=== PATIENT | female | born 1935 | race Caucasian/White ===

== ENCOUNTER 2016-12-20 16:58 | Emergency (ER) | payer MEDICARE, BC ==
[~2016-12-20] VITALS: Ht 162.6 cm; Wt 63.6 kg
[~2016-12-20 16:58] MED LIST: AMITRIPTYLINE H25 M1 PO; CIPRO 500MG TA500 MG PO; CRESTOR 10MG10 MG PO; DOXYCYCLINE 50M50 MG PO; HCTZ 25MG TAB25 MG PO; LORTAB 2.5/5001 TAB PO; MOBIC 7.5MG7.5 MG PO; NO HOME MEDICATIONS; OYSCO 500 + D 51 TAB PO; PEPCID 20MG TAB20 MG PO; RESTASIS0.05% OP; TENORMIN 2525 MG/TAB PO; TRANSDERM-0.5 MG/21 TD; ULTRAM 50MG TAB50 MG PO; ZANAFLEX CAPSULE4 MG PO
[2016-12-20 17:14] VITALS: TEMP 98.4
[2016-12-20] MEDS ORDERED: TYLENOL 500MG500 MG PO (17:23)
[2016-12-20] MEDS ORDERED: OXY IR5 MG PO (17:24)
[2016-12-20] MEDS ORDERED: RESTORIL 77.5 MG/CAP PO (17:24)
[2016-12-20] MEDS ORDERED: OMEGA-3 1000 MG1 CAP PO (17:25)
[2016-12-20 17:40] LABS: BASO # 0.1 (0.0-0.2); BASO % 0.9 % (0.0-2.0); EOS # 0.2 (0.0-0.7); EOS % 4.1 % (0-4.0); GRAN # 2.7 (1.4-6.5); GRAN % 46.2 % (42.2-75.2); HEMATOCRIT 41.8 % (37.0-47.0); HEMOGLOBIN 14.3 g/dl (12.5-16.0); LYMPH # 2.4 (1.2-3.4); LYMPH % 40.7 % (20.0-51.0); MEAN CELL VOLUME 96 fl (80.0-100.0); MEAN CORPUSCULAR HEMOGLOBIN 33 pg (27.0-31.0); MEAN CORPUSCULAR HGB CONC 34 g/dl (33.0-37.0); MEAN PLATELET VOLUME 9.5 fl (7.4-10.4); MONO # 0.5 (0.1-0.6); MONO % 7.9 % (1.7-9.3); PLATELET COUNT 219 K/mm3 (130-400); RED BLOOD COUNT 4.36 M/mm3 (4.10-5.30); REDCELL DISTRIBUTION WIDTH-CV 12.9 % (11.5-14.5); WHITE BLOOD COUNT 5.9 K/mm3 (4.8-10.8)
[2016-12-20 17:45] LABS: ADJUSTED CALCIUM 9.5 mg/dL (8.4-10.2); ALANINE AMINOTRANSFERASE 27 U/L (9-52); ALBUMIN 4.1 gm/dL (3.5-5.0); ALKALINE PHOSPHATASE 59 U/L (50-136); ANION GAP 11 mmol/L (7-16); BILIRUBIN,TOTAL 1.7 mg/dL (0.0-1.0); BLOOD UREA NITROGEN 20 mg/dL (7-17); CALCIUM 9.6 mg/dL (8.4-10.2); CARBON DIOXIDE 31 mmol/L (22-30); CHLORIDE 96 mmol/L (98-107); CREATININE, serum 0.92 mg/dL (0.52-1.25); GLUCOSE 87 mg/dL (74-106); LIPASE 47 U/L (23-300); POTASSIUM 3.9 mmol/L (3.4-5.0); SODIUM 138 mmol/L (137-145); TOTAL PROTEIN 6.6 gm/dL (6.4-8.2)
[2016-12-20 17:57] LABS: TROPONIN-I < 0.012 ng/mL (0.000-0.034)
[2016-12-20] MEDS ORDERED: PEPCID40 MG PO (18:32)
[2016-12-20 18:46] VITALS: BP 110/75; PULSE 60
== END 2016-12-20 18:48 | disposition home or self-care (01) ==
LOC: COL.ER 16:58
PROVIDERS: Emergency Medicine
DX: R07.9 Chest pain, unspecified (principal); I10 Essential (primary) hypertension; E78.5 Hyperlipidemia, unspecified

== ENCOUNTER 2017-04-07 10:45 | Outpatient (RCR) | payer MEDICARE, BC ==
[~2017-04-07 10:45] MED LIST changes: +OMEGA-3 1000 MG1 CAP PO; +OXY IR5 MG PO; +PEPCID40 MG PO; +RESTORIL 77.5 MG/CAP PO; +TYLENOL 500MG500 MG PO
== END 2017-04-15 13:55 | disposition home or self-care (01) ==
LOC: WSPT 10:45
DX: R53.1 Weakness (principal)
CPT/HCPCS: G8978-GP; G8979-GP; G8980-GP

== ENCOUNTER → 2017-06-01 | Outpatient (CLI) | payer MEDICARE, BC | LOC: COL.RAD 08:30 | DX: M25.551 Pain in right hip (principal) | CPT/HCPCS: J3301; Q9967 ==

== ENCOUNTER → 2017-09-15 | Outpatient (CLI) | payer MEDICARE, BC | LOC: MC.RAD 09-14 10:20 | DX: Z12.31 Encounter for screening mammogram for malignant neoplasm of breast (principal) ==

== ENCOUNTER → 2018-03-21 | Outpatient (CLI) | payer MEDICARE, BC | LOC: COL.RAD 13:43 | DX: M25.552 Pain in left hip (principal); M25.551 Pain in right hip | CPT/HCPCS: J3301; Q9967 ==

== ENCOUNTER → 2018-06-06 | Outpatient (CLI) | payer MEDICARE, BC | LOC: COL.RAD 09:00 | DX: K21.9 Gastro-esophageal reflux disease without esophagitis (principal) | CPT/HCPCS: G8996-GN; G8997-GN; G8998-GN ==

== ENCOUNTER 2018-06-16 09:45 | Outpatient (RCR) | payer MEDICARE, BC | END 2018-08-08 | disposition home or self-care (01) | LOC: WSST | DX: K21.9 Gastro-esophageal reflux disease without esophagitis (principal) | CPT/HCPCS: G8996-GN; G8997-GN ==

== ENCOUNTER 2018-08-31 12:45 | Outpatient (RCR) | payer MEDICARE, BC | END 2018-11-07 | disposition home or self-care (01) | LOC: WSST | DX: K21.9 Gastro-esophageal reflux disease without esophagitis (principal) | CPT/HCPCS: G8997-GN; G8998-GN; G9171-GN; G9172-GN ==

== ENCOUNTER → 2018-10-13 | Outpatient (CLI) | payer MEDICARE, BC | LOC: COL.RAD 10:00 | DX: M25.551 Pain in right hip (principal) | CPT/HCPCS: J3301; Q9967 ==

== ENCOUNTER → 2018-10-20 | Outpatient (CLI) | payer MEDICARE, BC | LOC: MC.RAD 14:14 | DX: Z12.31 Encounter for screening mammogram for malignant neoplasm of breast (principal) ==

== ENCOUNTER 2019-02-15 12:35 | Emergency (ER) | payer MEDICARE, BC ==
[~2019-02-15] VITALS: Ht 144.8 cm; Wt 62.7 kg
[2019-02-15 12:45] VITALS: TEMP 97.9
[2019-02-15 13:02] LABS: BASO % 0.4 % (0.0-2.0); EOS # 0.1 (0.0-0.7); EOS % 1.2 % (0-4.0); GRAN # 4.9 (1.4-6.5); HEMATOCRIT 43.7 % (37.0-47.0); HEMOGLOBIN 14.5 g/dl (12.5-16.0); LYMPH # 1.6 (1.2-3.4); LYMPH % 21.7 % (20.0-51.0); MEAN CELL VOLUME 102 fl (80.0-100.0); MEAN CORPUSCULAR HEMOGLOBIN 34 pg (27.0-31.0); MEAN CORPUSCULAR HGB CONC 33 g/dl (33.0-37.0); MEAN PLATELET VOLUME 9.2 fl (7.4-10.4); MONO # 0.7 (0.1-0.6); MONO % 9.4 % (1.7-9.3); PLATELET COUNT 221 K/mm3 (130-400); RED BLOOD COUNT 4.27 M/mm3 (4.10-5.30); REDCELL DISTRIBUTION WIDTH-CV 13.4 % (11.5-14.5)
[2019-02-15 13:05] LABS: INR 1.1 (0.8-3.0); PROTHROMBIN TIME 12.6 SECONDS (9.7-12.8)
[2019-02-15 13:08] LABS: ALANINE AMINOTRANSFERASE 14 U/L (9-52); ALBUMIN 4.1 gm/dL (3.5-5.0); ALKALINE PHOSPHATASE 45 U/L (50-136); ANION GAP 10 mmol/L (7-16); AST,SGOT 25 U/L (15-37); BILIRUBIN,TOTAL 1.9 mg/dL (0.0-1.0); BLOOD UREA NITROGEN 19 mg/dL (7-17); CALCIUM 9.4 mg/dL (8.4-10.2); CARBON DIOXIDE 27 mmol/L (22-30); CHLORIDE 102 mmol/L (98-107); GLUCOSE 107 mg/dL (74-106); POTASSIUM 4.1 mmol/L (3.4-5.0); SODIUM 139 mmol/L (137-145); TOTAL PROTEIN 6.8 gm/dL (6.4-8.2)
[2019-02-15 13:23] LABS: TROPONIN-I < 0.012 ng/mL (0.000-0.035)
[2019-02-15 16:22] VITALS: BP 147/97; PULSE 106
== END 2019-02-15 16:15 | disposition home or self-care (01) ==
LOC: COL.ER 12:35
PROVIDERS: Emergency Medicine
DX: I48.91 Unspecified atrial fibrillation (principal); I10 Essential (primary) hypertension; E78.5 Hyperlipidemia, unspecified; I48.2 Chronic atrial fibrillation; J44.9 Chronic obstructive pulmonary disease, unspecified; Z90.49 Acquired absence of other specified parts of digestive tract
CPT/HCPCS: J7030

== ENCOUNTER 2019-03-14 15:45 | Outpatient (RCR) | payer MEDICARE, BC | END 2019-03-15 | LOC: WSPT | DX: M54.6 Pain in thoracic spine (principal); G89.29 Other chronic pain | CPT/HCPCS: G0283-GP ==

== ENCOUNTER 2019-03-20 14:39 | Outpatient (RCR) | payer MEDICARE, BC | END 2019-03-23 13:22 | disposition home or self-care (01) | LOC: WSPT 14:39 | DX: M54.6 Pain in thoracic spine (principal); G89.29 Other chronic pain ==

== ENCOUNTER → 2019-07-28 | Outpatient (CLI) | payer MEDICARE, BC | LOC: COL.RAD 09:21 | DX: M16.0 Bilateral primary osteoarthritis of hip (principal) | CPT/HCPCS: J3301; Q9967 ==

== ENCOUNTER 2019-09-03 17:18 | Observation (INO) | payer MEDICARE, BC ==
[~2019-09-03] VITALS: Ht 144.8 cm; Wt 64.6 kg
[2019-09-03 17:42] LABS: BASO # 0.1 (0.0-0.2); BASO % 0.7 % (0.0-2.0); EOS # 0.2 (0.0-0.7); EOS % 2.3 % (0-4.0); GRAN # 4.2 (1.4-6.5); LYMPH # 2.3 (1.2-3.4); LYMPH % 29.9 % (20.0-51.0); MEAN CELL VOLUME 101 fl (80.0-100.0); MEAN CORPUSCULAR HEMOGLOBIN 33 pg (27.0-31.0); MEAN CORPUSCULAR HGB CONC 33 g/dl (33.0-37.0); MEAN PLATELET VOLUME 9.5 fl (7.4-10.4); MONO # 0.9 (0.1-0.6); MONO % 11.6 % (1.7-9.3); PLATELET COUNT 287 K/mm3 (130-400); RED BLOOD COUNT 3.65 M/mm3 (4.10-5.30); REDCELL DISTRIBUTION WIDTH-CV 13.9 % (11.5-14.5)
[2019-09-03 17:44] LABS: HEMATOCRIT 36.9 % (37.0-47.0)
[2019-09-03 17:46] LABS: PROTHROMBIN TIME 11.4 SECONDS (9.7-12.8)
[2019-09-03 17:51] LABS: ALANINE AMINOTRANSFERASE 21 U/L (9-52); ALBUMIN 3.9 gm/dL (3.5-5.0); ALKALINE PHOSPHATASE 57 U/L (50-136); ANION GAP 9 mmol/L (7-16); AST,SGOT 30 U/L (15-37); BLOOD UREA NITROGEN 25 mg/dL (7-17); CALCIUM 9.3 mg/dL (8.4-10.2); CARBON DIOXIDE 27 mmol/L (22-30); CHLORIDE 104 mmol/L (98-107); CREATININE, serum 0.86 (0.52-1.25); GLUCOSE 124 mg/dL (74-106); LIPASE 26 U/L (23-300); POTASSIUM 3.9 mmol/L (3.4-5.0); SODIUM 140 mmol/L (137-145); TOTAL PROTEIN 6.6 gm/dL (6.4-8.2)
[2019-09-03 18:07] LABS: TROPONIN-I < 0.012 ng/mL (0.000-0.035)
[2019-09-03] MEDS ORDERED: ASPIRIN 32325 MG/TAB PO (19:39)
[2019-09-03 21:18] VITALS: BP 152/81; PULSE 69; TEMP 98.2
[2019-09-03] MEDS ORDERED: ELIQUIS 5MG PO (22:37)
[2019-09-03 22:38] LABS: MAGNESIUM 2.1 mg/dL (1.6-2.3)
[2019-09-03] MEDS ORDERED: CLEOCIN HCL300 MG PO (22:41)
[2019-09-03 22:53] LABS: TROPONIN-I 3 HR POST INITIAL < 0.012 ng/mL (0.000-0.034)
[2019-09-03 23:18] VITALS: BP 159/84; PULSE 69; TEMP 98.6
[2019-09-04] MEDS ORDERED: CRESTOR 10MG10 MG PO (01:20)
[2019-09-04] MEDS ORDERED: SYNTHROID0.05 MG/TA PO (01:20)
[2019-09-04] MEDS ORDERED: ZEBETA 5MG5 MG PO (01:20)
[2019-09-04] MEDS ORDERED: ULTRAM 50MG TAB50 MG PO (01:21)
[2019-09-04] MEDS ORDERED: REQUIP0.25 MG PO (01:22)
[2019-09-04] MEDS ORDERED: NORCO 325 MG-51 TAB PO (01:23)
[2019-09-04] MEDS ORDERED: SANCTURA20 MG PO (01:26)
[2019-09-04] MEDS ORDERED: TOPROL XL 25MG25 MG PO (01:33)
[2019-09-04 03:38] LABS: BASO # 0.1 (0.0-0.2); BASO % 0.8 % (0.0-2.0); EOS # 0.2 (0.0-0.7); EOS % 2.4 % (0-4.0); GRAN % 64.3 % (42.2-75.2); HEMOGLOBIN 10.7 g/dl (12.5-16.0); LYMPH # 1.7 (1.2-3.4); LYMPH % 21.4 % (20.0-51.0); MEAN CELL VOLUME 101 fl (80.0-100.0); MEAN CORPUSCULAR HEMOGLOBIN 33 pg (27.0-31.0); MEAN CORPUSCULAR HGB CONC 33 g/dl (33.0-37.0); MEAN PLATELET VOLUME 9.6 fl (7.4-10.4); MONO # 0.8 (0.1-0.6); MONO % 10.7 % (1.7-9.3); PLATELET COUNT 224 K/mm3 (130-400); RED BLOOD COUNT 3.22 M/mm3 (4.10-5.30); REDCELL DISTRIBUTION WIDTH-CV 13.9 % (11.5-14.5)
[2019-09-04 03:44] LABS: HEMATOCRIT 32.5 % (37.0-47.0)
[2019-09-04 03:51] LABS: ALANINE AMINOTRANSFERASE 23 U/L (9-52); ALBUMIN 3.3 gm/dL (3.5-5.0); ALKALINE PHOSPHATASE 50 U/L (50-136); ANION GAP 6 mmol/L (7-16); AST,SGOT 21 U/L (15-37); BILIRUBIN,TOTAL 0.9 mg/dL (0.0-1.0); BLOOD UREA NITROGEN 18 mg/dL (7-17); CALCIUM 8.7 mg/dL (8.4-10.2); CARBON DIOXIDE 25 mmol/L (22-30); CHLORIDE 108 mmol/L (98-107); CHOLESTEROL 128 mg/dL (120-200); CHOLESTEROL RISK RATIO 2.6; CREATININE, serum 0.73 (0.52-1.25); GLUCOSE 101 mg/dL (74-106); HDL CHOLESTEROL 48 mg/dL; LDL CHOLESTEROL 58 mg/dL; POTASSIUM 3.5 mmol/L (3.4-5.0); SODIUM 139 mmol/L (137-145); TOTAL PROTEIN 5.7 gm/dL (6.4-8.2); TRIGLYCERIDE 108 mg/dL
[2019-09-04 04:01] VITALS: BP 160/85; PULSE 76; TEMP 98.6
[2019-09-04 04:20] LABS: TROPONIN-I < 0.012 ng/mL (0.000-0.035)
--- NOTE | 2019-09-04 06:31 | NUR ---
Vancomycin Initial Dosing Pharmacy Note Ordering provider: Leslie Parisi MD Indication/duration: cellulitis LABS: est Crcl 35-40 ml/min Recommendation: staring dose at 1 gram IV daily, will follow daily labs, obtain trough prior to the 4th dose on 09/06/2019 at 1730. Loading dose: 1.5 grams Maintenance dose: 1 gram every 24 hours Trough goal: 10-15 ug/mL
[2019-09-04 07:08] VITALS: BP 162/93; PULSE 82; TEMP 98.2
--- NOTE | 2019-09-04 07:38 | NUR ---
ASSESSMENT COMPLETE. ORIENTED TO ROOM AND PROCESS OF ADMISSION. VOICES UNDERSTANDING. DENIES NEEDS AT THIS TIME.
--- NOTE | 2019-09-04 10:07 | NUR ---
Assessment completed, alert/oriented, vital signs stable, denies any acutre chest / abd pain or discomfort, reports chronic arthritis pain/ takes ultram and tylenol scheduled, heart RRR/ dsital pulses are palpable, SR on tele, lungs CTA/ no resp.difficulty noted, she has wound on her left lawson/ Cx were obtained, however she has been on Abx for a couple weeks now per her report, dressing intact and will leave it be untill hospitalist assesses wound and give order for wound cares/dressings, she is NPO at this time for Further workup of abd pain, she denies needs
[2019-09-04 11:45] VITALS: BP 144/84; PULSE 78; TEMP 98
--- NOTE | 2019-09-04 13:35 | NUR ---
SW met with the patient to discuss discharge plan. The patient lives in [place] with her , Max. She reports independence with ADLs and has two canes. The patient's PCP is Dr. Melisa Keys and she receives her medications at [facility]. She reports no difficulties obtaining her meds. The patient does not have advanced directives in EMR, but she states that she does have them completed. She states that her is her DPOA-HC. The patient plans to return home with her upon discharge. No additional needs at this time.
[2019-09-04 15:42] VITALS: BP 154/81; PULSE 69; TEMP 98
--- NOTE | 2019-09-04 20:00 | NUR ---
Patient assessed at this time. Confused and disoriented to place and situation. Reported that patient has not slept for a few days now and has been getting increasingly confused. Denies having pain and discomfort. Peripheral IV to left forearm. Fluids and ABXs running per orders. LS CTA. Respirations even and unlabored. Denies SOB and dyspenean. HRR. Telemetry: NS. Capillary refill less than 3 seconds. Non-tenting skin turgor. BSAx4. Abdomen soft and non-tender. 1+ edema LLE. Mepilex to ulcer to left lawson is CDI. In bed with call light within reach.
[2019-09-04 20:16] VITALS: BP 127/77; PULSE 83; TEMP 98.1
--- NOTE | 2019-09-04 21:15 | NUR ---
Patient assisted to bathroom. Patient is now oriented to person, time, and place, just not situation. Easily redirected to why she is in the hospital. Voices no questions, needs, or concerns at this time. In bed with call light within reach.
--- NOTE | 2019-09-05 01:30 | NUR ---
When checking on patient, noted blood on floor leading to bathroom. Patient took out IV that had been cobaned. Stated that she does not want the IV in. Explained to patient that she needs IV access for fluids and IV antibiotics. Continues to adamently refuse. Patient has Zosyn due to 0330. Will try at that time.
--- NOTE | 2019-09-05 03:34 | NUR ---
This nurse tried to start IV on patient. Patient upset, stating that she has a right to refuse, and she does not want any IV fluids or antibiotics. States it one is placed, she will take it back out. Patient is alert and oriented to person, place, time, and situation at this time. Explained to patient that she really needs to have her antibiotics for her infection to LLE. Patient continues to refuse at this time. Spoke with house calls nurse practitioner, and in agreement that patient has a right to refuse. Education was provided to patient, and unable to get patient to allow IV to be started.
--- NOTE | 2019-09-05 05:46 | NUR ---
Patient refusing synthroid. States she does not want to take any medication at the hospital due to the cost, and will take her medication when she gets home today. Explained to patient that she may not get home until the afternoon. Stated that one missed dose wont hurt her. Continues to refuse to allow IV to be placed. Resting in bed with call light within reach.
--- NOTE | 2019-09-05 07:00 | NUR ---
Report received from EVELIA berg. Pt in bed resting with eyes closed, will continue to monitor.
--- NOTE | 2019-09-05 07:10 | NUR ---
Report given to day shift nurse.
[2019-09-05 07:46] VITALS: BP 153/91; PULSE 87; TEMP 97.4
[2019-09-05 08:57] LABS: BASO % 0.6 % (0.0-2.0); EOS # 0.3 (0.0-0.7); GRAN # 3.9 (1.4-6.5); GRAN % 61.3 % (42.2-75.2); HEMOGLOBIN 11.6 g/dl (12.5-16.0); LYMPH # 1.5 (1.2-3.4); LYMPH % 23.8 % (20.0-51.0); MEAN CELL VOLUME 103 fl (80.0-100.0); MEAN CORPUSCULAR HEMOGLOBIN 33 pg (27.0-31.0); MEAN CORPUSCULAR HGB CONC 32 g/dl (33.0-37.0); MEAN PLATELET VOLUME 9.6 fl (7.4-10.4); MONO # 0.6 (0.1-0.6); MONO % 9.8 % (1.7-9.3); PLATELET COUNT 250 K/mm3 (130-400); RED BLOOD COUNT 3.56 M/mm3 (4.10-5.30); REDCELL DISTRIBUTION WIDTH-CV 13.9 % (11.5-14.5)
[2019-09-05 08:59] LABS: HEMATOCRIT 36.5 % (37.0-47.0)
[2019-09-05 09:39] LABS: CALCIUM 8.8 mg/dL (8.4-10.2); CREATININE, serum 0.8 (0.52-1.25)
--- NOTE | 2019-09-05 09:56 | NUR ---
Assesment charted. Upon entry pt states she feels like "I am coming out of a fog", she states she thought that she was still on the boat that she was on for 1 month, just now feeling like she is back to her "self". Oriented, but feels she has lost several days. Discussed plan, staets she pulled out IV because she felt we were "taking my blood and giving it to others". Called wound care and received recs to place aquacel ag on site and cover with large allevian. Will continue to monitor.
[2019-09-05] MEDS ORDERED: PROTONIX 40MG T40 MG PO (10:53)
[2019-09-05 11:32] VITALS: BP 159/81; PULSE 75; TEMP 98.2
--- NOTE | 2019-09-05 13:30 | NUR ---
Discharge teaching completed at this time. Reviewed discharge packet in detail. No IV site. Disucssed f/u appointments. Pt left with all belongings, escorted out via w/c by medical staff. to drive home, criteria met.
== END 2019-09-05 13:00 | disposition home or self-care (01) ==
LOC: COL.ER 17:18 → MEDICAL 19:17
PROVIDERS: Emergency Medicine; Nurse Practitioner Family; ADMIT Student in an Organized Health Care Education/Training Program
DX: K83.8 Other specified diseases of biliary tract (principal); R13.10 Dysphagia, unspecified; S81.802A Unspecified open wound, left lower leg, initial encounter; K44.9 Diaphragmatic hernia without obstruction or gangrene; I10 Essential (primary) hypertension; E78.5 Hyperlipidemia, unspecified; I48.0 Paroxysmal atrial fibrillation; E03.9 Hypothyroidism, unspecified; G25.81 Restless legs syndrome; G89.29 Other chronic pain; K58.9 Irritable bowel syndrome, unspecified; F05 Delirium due to known physiological condition; W51.XXXA Accidental striking against or bumped into by another person, initial encounter
CPT/HCPCS: G0378; J2405; J2543; J3370; J7030; J7050; Q9967

== ENCOUNTER 2019-09-09 17:20 | Emergency (ER) | payer MEDICARE, BC ==
[~2019-09-09] VITALS: Ht 144.8 cm; Wt 59.1 kg
[~2019-09-09 17:20] MED LIST changes: +ASPIRIN 32325 MG/TAB PO; +CLEOCIN HCL300 MG PO; +ELIQUIS 5MG PO; +NORCO 325 MG-51 TAB PO; +PROTONIX 40MG T40 MG PO; +REQUIP0.25 MG PO; +SANCTURA20 MG PO; +SYNTHROID0.05 MG/TA PO; +TOPROL XL 25MG25 MG PO; +ZEBETA 5MG5 MG PO
[2019-09-09 19:04] LABS: COLLECTION METHOD CLEAN CATCH
[2019-09-09 19:17] LABS: BASO % 0.6 % (0.0-2.0); EOS # 0.2 (0.0-0.7); EOS % 3.3 % (0-4.0); GRAN # 4.2 (1.4-6.5); GRAN % 57.7 % (42.2-75.2); HEMATOCRIT 39.1 % (37.0-47.0); HEMOGLOBIN 12.4 g/dl (12.5-16.0); LYMPH # 2.1 (1.2-3.4); LYMPH % 28.3 % (20.0-51.0); MEAN CELL VOLUME 102 fl (80.0-100.0); MEAN CORPUSCULAR HEMOGLOBIN 32 pg (27.0-31.0); MEAN CORPUSCULAR HGB CONC 32 g/dl (33.0-37.0); MEAN PLATELET VOLUME 9.2 fl (7.4-10.4); MONO # 0.7 (0.1-0.6); MONO % 9.8 % (1.7-9.3); PLATELET COUNT 276 K/mm3 (130-400); RED BLOOD COUNT 3.85 M/mm3 (4.10-5.30); REDCELL DISTRIBUTION WIDTH-CV 13.7 % (11.5-14.5)
[2019-09-09 19:19] LABS: ALANINE AMINOTRANSFERASE 17 U/L (9-52); ALBUMIN 4.2 gm/dL (3.5-5.0); ALKALINE PHOSPHATASE 55 U/L (50-136); ANION GAP 6 mmol/L (7-16); AST,SGOT 26 U/L (15-37); BILIRUBIN,TOTAL 0.9 mg/dL (0.0-1.0); BLOOD UREA NITROGEN 16 mg/dL (7-17); CALCIUM 9.4 mg/dL (8.4-10.2); CARBON DIOXIDE 29 mmol/L (22-30); CHLORIDE 103 mmol/L (98-107); CREATININE, serum 0.86 (0.52-1.25); GLUCOSE 98 mg/dL (74-106); POTASSIUM 3.8 mmol/L (3.4-5.0); SODIUM 138 mmol/L (137-145)
[2019-09-09 19:20] LABS: C-REACTIVE PROTEIN < 0.5 mg/dL (0.0-0.9)
[2019-09-09 19:24] LABS: MUCOUS Present /lpf; PH 5 (5-8); URINE APPEARANCE Clear; URINE BACTERIA None Seen /hpf; URINE BILIRUBIN Negative (NEGATIVE); URINE BLOOD Negative (NEGATIVE); URINE COLOR Yellow; URINE GLUCOSE Negative (NEGATIVE); URINE KETONE Negative (NEGATIVE); URINE LEUKOCYTE ESTERASE Trace (NEGATIVE); URINE NITRATE Negative (NEGATIVE); URINE PROTEIN(semi-quant) Negative (NEGATIVE); URINE RBC 0-2 /hpf; URINE UROBILINOGEN Negative (NEGATIVE)
[2019-09-09 20:02] VITALS: BP 131/82; PULSE 72; TEMP 98.9
== END 2019-09-09 20:09 | disposition home or self-care (01) ==
LOC: COL.ER 17:20
PROVIDERS: Family Medicine
DX: I87.2 Venous insufficiency (chronic) (peripheral) (principal); L97.929 Non-pressure chronic ulcer of unspecified part of left lower leg with unspecified severity; I48.91 Unspecified atrial fibrillation; I10 Essential (primary) hypertension; E78.5 Hyperlipidemia, unspecified

== ENCOUNTER → 2019-10-23 | Outpatient (CLI) | payer MEDICARE, BC | LOC: MC.RAD 15:12 | DX: Z12.31 Encounter for screening mammogram for malignant neoplasm of breast (principal) ==

== ENCOUNTER 2020-02-06 11:15 | Outpatient (RCR) | payer MEDICARE, BC | END 2020-03-07 12:31 | disposition home or self-care (01) | LOC: WSPT 11:15 | DX: M48.061 Spinal stenosis, lumbar region without neurogenic claudication (principal); M51.36 Other intervertebral disc degeneration, lumbar region; M85.80 Other specified disorders of bone density and structure, unspecified site; M15.0 Primary generalized (osteo)arthritis; G25.81 Restless legs syndrome; G62.9 Polyneuropathy, unspecified; R53.1 Weakness ==

== ENCOUNTER → 2020-03-18 | Outpatient (CLI) | payer MEDICARE, BC | LOC: COL.RAD 13:00 | DX: M25.551 Pain in right hip (principal); M25.552 Pain in left hip | CPT/HCPCS: J3301; Q9967 ==

== ENCOUNTER 2020-09-03 07:05 | Day surgery (SDC) | payer MEDICARE, BC ==
[~2020-09-03] VITALS: Ht 144.8 cm; Wt 63.6 kg
[2020-09-03 07:59] VITALS: BP 134/80; PULSE 53; TEMP 98.9
[2020-09-03 08:50] VITALS: BP 116/47; PULSE 51; TEMP 97.3
[2020-09-03 09:05] VITALS: BP 127/69; PULSE 48
[2020-09-03 09:20] VITALS: BP 144/85; PULSE 54
[2020-09-03 09:35] VITALS: BP 120/45; PULSE 56
--- NOTE | 2020-09-03 10:05 | NUR ---
0850 TO [facility] 3 VIA CART. PATIENT AMBULATD TO CHAIR WITH A CANE AND A SHUFFLING GAIT. VSS. 0905 PATIENT TAKING APPLE JUICE AND MUFFIN PO. TOLERATING WELL. DENIES COMPLAINT. 0914 DR. STEVENSON IN ROOM SPEAKING WITH PATIENT. 0930 D/C INTRUCTIONS AND PATIENT EDUCATION GIVEN IN WRITING AND VERBALLY. PATIENT VERBALIZED UNDERSTANDING. IV DISCONTINUED. CATH INTACT. TOLERATED WELL. WRAPPED SITE WITH COBAN. 0940 PATIENT DISCHARGED TO [facility] VIA WC TO 'S CARE.
== END 2020-09-03 10:31 | disposition home or self-care (01) ==
LOC: SDCO 07:05
DX: K29.30 Chronic superficial gastritis without bleeding (principal); K44.9 Diaphragmatic hernia without obstruction or gangrene; I48.91 Unspecified atrial fibrillation; G25.81 Restless legs syndrome; M85.80 Other specified disorders of bone density and structure, unspecified site; G47.33 Obstructive sleep apnea (adult) (pediatric); E78.5 Hyperlipidemia, unspecified; K58.9 Irritable bowel syndrome, unspecified; M19.90 Unspecified osteoarthritis, unspecified site; E03.9 Hypothyroidism, unspecified; Z96.659 Presence of unspecified artificial knee joint; Z79.01 Long term (current) use of anticoagulants; Z20.828 Contact with and (suspected) exposure to other viral communicable diseases; G89.29 Other chronic pain
CPT/HCPCS: J2704; J7030